=== PATIENT | female | born 1985 ===

== ENCOUNTER 2017-01-14 20:52 | Observation (INO) | payer MEDICAID ==
[2017-01-14 20:53] VITALS: BMI 24.5
[2017-01-14 21:43] VITALS: RESP 18; O2SAT 99
--- NOTE | 2017-01-14 21:54 | ED PDOC ---
HPI: Female Pain Time Seen by Provider: 01/14/17 21:53 Chief Complaint (Nursing): Female Genitourinary Chief Complaint (Provider): ABDOMINAL PAIN History Per: Patient (31 Y/O FEMALE HERE WITH DYSURIA/FOUL SMELLING URINE X 1 WEEK ASSOCIATED WITH ABDOMINAL PAIN AND HEADACHE. PATIENT DESCRIBES ABDOMINAL PAIN A "PULLING SENSATION.".) Past Medical History Reviewed: Historical Data, Nursing Documentation, Vital Signs Vital Signs: Last Vital Signs Temp 97.8 F 01/14/17 21:40 Pulse 78 01/14/17 21:40 Resp 18 01/14/17 21:40 BP 117/67 01/14/17 21:40 Pulse Ox 99 01/14/17 21:40 - Medical History PMH: Fractures (fib fx) - Surgical History Surgical History: (x 3) - Family History Family History: States: Unknown Family Hx - Home Medications Home Medications: Ambulatory Orders Medication Instructions Recorded Nitrofurantoin Macrocrystals 100 mg PO BID #14 cap 02/29/16 [Macrobid] Cephalexin [Keflex] 500 mg PO TID #21 capsule 05/16/16 Ibuprofen [Motrin] 600 mg PO Q6 PRN #15 tab 05/16/16 Sulfamethoxazole/Trimethoprim 1 tab PO BID #14 tab 05/16/16 [Bactrim DS 800 mg-160 mg] Miconazole Nitrate [Monistat 3] 1 each VG DAILY #1 kit 01/15/17 - Allergies Allergies/Adverse Reactions: Allergies Allergy/AdvReac Type Severity Reaction Status Date / Time No Known Allergies Allergy Verified 05/16/16 11:30 Review of Systems ROS Statement: Except As Marked, All Systems Reviewed And Found Negative Physical Exam - Reviewed Nursing Documentation Reviewed: Yes Vital Signs Reviewed: Yes - Physical Exam Appears: Positive for: Well, Non-toxic, No Acute Distress Head Exam: Positive for: ATRAUMATIC, NORMAL INSPECTION, NORMOCEPHALIC Skin: Positive for: Normal Color, Warm, DRY Eye Exam: Positive for: EOMI, Normal appearance, PERRL ENT: Positive for: Normal ENT Inspection Neck: Positive for: Normal, Painless ROM Cardiovascular/Chest: Positive for: Regular Rate, Rhythm Respiratory: Positive for: CNT, Normal Breath Sounds Gastrointestinal/Abdominal: Positive for: Normal Exam, Bowel Sounds, Soft Back: Positive for: Normal Inspection Extremity: Positive for: Normal ROM Neurologic/Psych: Positive for: Alert, Oriented - Laboratory Results Result Diagrams: 01/14/17 22:30 01/14/17 22:49 - ECG O2 Sat by Pulse Oximetry: 99 - Progress ED Course And Treament: acetaminophen 975 m x 1 dose ED OBSERVATION Date of observation admission: 01/14/17 Time of observation admission: 21:30 - Observation admission statement Patient is being placed in observation because:: abdominal pain - Goals of Observation Goals of observation are:: evaluate for cause of abdominal pain - Progress Note Progress Note: 01/14/17 23:59 Patient re-evaluated after bloodwork/urinalysis. Abdominal noted tender lower. Pelvic exam at this time with no cmt/mild right adnexal tendernes noted. Patient notes moderate tenderness right lower quadrant. NS 1 liter 500 ml per hour x [address] r/o appendicitis. pepcid 20 mg iv x 1 dose 01/15/17 00:03 Disposition - Clinical Impression Clinical Impression: Abdominal pain - Patient ED Disposition Is Patient to be Admitted: Transfer of Care - Disposition Disposition: Transfer of Care Disposition Time: 00:01 Condition: FAIR Prescriptions: Miconazole Nitrate [Monistat 3] 1 each VG DAILY #1 kit Instructions: Abdominal Pain (ED), Vulvovaginal Candidiasis (ED) Forms: [facility] (Portuguese) Handoff Comments: pending ct abd/pelvis
[2017-01-14 22:41] LABS: BASO % 0.5 % (0.0-2.0); EOS # 0.1 K/uL (0.0-0.7); EOS % 1.3 % (0.0-4.0); HEMATOCRIT 34.1 % (34.0-47.0); MEAN CELL VOLUME 72.8 fl (81.0-99.0); MEAN CORPUSCULAR HEMOGLOBIN 22.6 pg (27.0-31.0); MEAN CORPUSCULAR HGB CONC 31.1 g/dL (33.0-37.0); MEAN PLATELET VOLUME 9.7 fl (7.2-11.7); MONO # 0.7 K/uL (0.0-0.8); MONO % 6.9 % (0.0-10.0); NEUT # 5.8 K/uL (1.8-7.0); NEUT % 60.3 % (50.0-75.0); NRBC % 0.1 % (0.0-0.0); RED CELL DISTRIBUTION WIDTH 18.5 % (11.5-14.5); WHITE BLOOD COUNT 9.6 K/uL (4.8-10.8)
[2017-01-14 22:52] LABS: RBC URINE < 1 /hpf (0-3); URINE BILIRUBIN NEGATIVE (NEGATIVE); URINE BLOOD NEGATIVE (NEGATIVE); URINE COLOR STRAW (YELLOW); URINE GLUCOSE (UA) NEG (Normal); URINE KETONE NEGATIVE (NEGATIVE); URINE LEUKOCYTE ESTERASE NEG Leu/uL (Negative); URINE PROTEIN NEGATIVE (NEGATIVE); URINE UROBILINOGEN 0.2-1.0 mg/dL (0.2-1.0); WBC URINE < 1 /hpf (0-5)
[2017-01-14 22:57] LABS: ALB/GLOB RATIO 1.2 (1.0-2.1); ALKALINE PHOSPHATASE 72 U/L (38-126); ALT/SGPT 28 U/L (9-52); AST/SGOT 34 U/L (14-36); BILIRUBIN,TOTAL 0.2 mg/dl (0.2-1.3); BLOOD UREA NITROGEN 17 mg/dl (7-17); CALCIUM 9.2 mg/dL (8.4-10.2); CARBON DIOXIDE 25 mmol/L (22-30); CHLORIDE 103 mmol/L (98-107); GFR AFRICAN-AMERICAN > 60; GLUCOSE,RANDOM 89 mg/dL (65-105); LIPASE 162 U/L (23-300); POTASSIUM 4.1 MMOL/L (3.6-5.0); SODIUM 141 mmol/l (132-148); TOTAL PROTEIN 7.8 G/DL (6.3-8.2)
[2017-01-14] MEDS ORDERED: Sodium Chloride 0.9% 1,000 ML IV STA (23:54)
[2017-01-14] MEDS ORDERED: Iohexol 240 (50 ml) PO STA (23:54)
[2017-01-15] MEDS ORDERED: Iohexol 240 (50 ml) ONE (00:15)
[2017-01-15] MEDS ORDERED: Sodium Chloride 0.9% 50 ML IV ONE (01:46)
[2017-01-15] MEDS ORDERED: Iohexol 300 100 ML IJ ONE (01:46)
--- NOTE | 2017-01-15 02:58 | CT ---
EXAM: CT Abdomen and Pelvis With Intravenous Contrast CLINICAL HISTORY: 31 years old, female; Pain; Abdominal pain; Localized; Lower; Prior surgery; Surgery date: 6+ months; Surgery type: ; Additional info: Rlq pain TECHNIQUE: Axial computed tomography images of the abdomen and pelvis with intravenous contrast. All CT scans at this facility use one or more dose reduction techniques, viz.: automated exposure control; ma/kV adjustment per patient size (including targeted exams where dose is matched to indication; i.e. head); or iterative reconstruction technique. Coronal and sagittal reformatted images were created and reviewed. CONTRAST: 90 mL of [id number] administered intravenously. COMPARISON: CT - ABD PELVIS W/O PO OR IV CONT 01/26/2016 6:37:12 AM FINDINGS: Lower thorax: The bilateral lung bases are clear. ABDOMEN: Liver: No acute findings. Gallbladder and bile ducts: The gallbladder is decompressed. No calcified stones. No significant intra- or extrahepatic biliary ductal dilation. Pancreas: Enhances homogeneously. No ductal dilation. No discrete mass. Spleen: No acute findings. Adrenals: No acute findings. Kidneys and ureters: No acute findings. No hydronephrosis or renal calculi. No discrete solid mass. PELVIS: Bladder: No acute findings. Reproductive: An intrauterine device is present.Two involuting left adnexal cysts are present, measuring 19 and 17 mm in greatest dimension, respectively. Appendix: The appendix is not definitively visualized, however no pericecal inflammatory change is identified to suggest the presence of acute appendicitis. ABDOMEN and PELVIS: Stomach and bowel: A fat (and likely omental) containing umbilical hernia is present, unchanged from 01/26/2016. Oral contrast extends to the level of the distal small bowel, without obstruction. Peritoneum: No significant fluid collection. No free air. Lymph nodes: No pathologically enlarged lymph nodes. Vasculature: Unremarkable. Bones: No acute fracture. IMPRESSION: 1 a fat and omental containing umbilical hernia is again identified, unchanged from 2016. Two involuting cysts within the left ovary, as detailed above. The appendix is not definitively identified, however no pericecal inflammation is identified to suggest the presence of acute appendicitis.
[2017-01-15 03:40] VITALS: BP 90/65; PULSE 80; TEMP 98.6
--- NOTE | 2017-01-15 03:47 | ED PDOC ---
- Laboratory Results Result Diagrams: 01/14/17 22:30 01/14/17 22:49 - ECG O2 Sat by Pulse Oximetry: 99 - Progress ED Course And Treament: Case endorsed to junior technical writer from [facility] pending CT EXAM: CT Abdomen and Pelvis With Intravenous Contrast CLINICAL HISTORY: 31 years old, female; Pain; Abdominal pain; Localized; Lower; Prior surgery; Surgery date: 6+ months; Surgery type: ; Additional info: Rlq pain TECHNIQUE: Axial computed tomography images of the abdomen and pelvis with intravenous contrast. All CT scans at this facility use one or more dose reduction techniques, viz.: automated exposure control; ma/kV adjustment per patient size (including targeted exams where dose is matched to indication; i.e. head); or iterative reconstruction technique. Coronal and sagittal reformatted images were created and reviewed. CONTRAST: 90 mL of [id number] administered intravenously. COMPARISON: CT - ABD PELVIS W/O PO OR IV CONT 01/26/2016 6:37:12 AM FINDINGS: Lower thorax: The bilateral lung bases are clear. ABDOMEN: Liver: No acute findings. Gallbladder and bile ducts: The gallbladder is decompressed. No calcified stones. No significant intra- or extrahepatic biliary ductal dilation. Pancreas: Enhances homogeneously. No ductal dilation. No discrete mass. Spleen: No acute findings. Adrenals: No acute findings. Kidneys and ureters: No acute findings. No hydronephrosis or renal calculi. No discrete solid mass. PELVIS: Bladder: No acute findings. Reproductive: An intrauterine device is present.Two involuting left adnexal cysts are present, measuring 19 and 17 mm in greatest dimension, respectively. Appendix: The appendix is not definitively visualized, however no pericecal inflammatory change is identified to suggest the presence of acute appendicitis. ABDOMEN and PELVIS: Stomach and bowel: A fat (and likely omental) containing umbilical hernia is present, unchanged from 01/26/2016. Oral contrast extends to the level of the distal small bowel, without obstruction. Peritoneum: No significant fluid collection. No free air. Lymph nodes: No pathologically enlarged lymph nodes. Vasculature: Unremarkable. Bones: No acute fracture. IMPRESSION: 1 a fat and omental containing umbilical hernia is again identified, unchanged from 2016. Two involuting cysts within the left ovary, as detailed above. The appendix is not definitively identified, however no pericecal inflammation is identified to suggest the presence of acute appendicitis. On re-eval, patient states pain improved. Patient educated on findings, discharged with instructions to follow up PMD 2-3 days. REturn to ED for worsening/concerning symptoms. Disposition - Clinical Impression Clinical Impression: Abdominal pain, Ovarian cyst - POA Present On Arrival: None - Disposition Disposition: Routine/Home Disposition Time: 03:47 Condition: IMPROVED
== END 2017-01-15 04:01 | disposition home or self-care (01) ==
LOC: H.ER 20:52 → H.EROBSV 23:56
PROVIDERS: ADMIT Emergency Medicine; ATTEND Emergency Medicine
DX: R10.31 Right lower quadrant pain (principal); K42.9 Umbilical hernia without obstruction or gangrene; N83.202 Unspecified ovarian cyst, left side
CPT/HCPCS: 74177; 80053; 81003; 81025; 83690; 85025; 87086; 87491; 87591; 96374; 99284; G0378; J7040; Q9966; Q9967